=== PATIENT | female | born 1970 | race Caucasian/White ===

== ENCOUNTER 2019-08-08 17:11 | Inpatient (IN) | payer BC ==
--- NOTE | 2019-08-08 17:41 | PDOC ---
Attending Attestation - Resident Resident Name: Diana Reddy - ED Attending Attestation I have performed the following: I have examined & evaluated the patient, The case was reviewed & discussed with the resident, I agree w/resident's findings & plan, Exceptions are as noted - HPI HPI: 48 yo F history HTN, DM presents with severe HTN by PCP. She states she thought she did not need medication, as she had no symptoms. She noted recent tingling to the R foot. She has not seen a primary care since a year ago. She was sent to ED due to BP measurement of 250s/100s. Denies cp, SOB, headache, N/V, weakness. No change in urine output. - Physicial Exam PE: GENERAL: Awake, alert, and fully oriented, in no acute distress HEAD: No signs of trauma EYES: PERRLA, EOMI, sclera anicteric, conjunctiva clear ENT: Auricles normal inspection, hearing grossly normal, nares patent, oropharynx clear without exudates. Moist mucosa NECK: Normal ROM, supple, no lymphadenopathy, JVD, or masses LUNGS: Breath sounds equal, clear to auscultation bilaterally. No wheezes, and no crackles HEART: Regular rate and rhythm, normal S1 and S2, no murmurs, rubs or gallops ABDOMEN: Soft, nontender, normoactive bowel sounds. No guarding, no rebound. No masses EXTREMITIES: Normal range of motion, no edema. No clubbing or cyanosis. No cords, erythema, or tenderness NEUROLOGICAL: Cranial nerves II through XII grossly intact. Normal speech, normal gait. Motor intact. SKIN: Warm, dry, normal turgor, no rashes or lesions noted. - Medical Decision Making Suspect that the numbness is related to diabetic neuropathy in light of HbA1C of 11. Would be an unusual distribution for CVA. No other signs of end-organ damage related to HTN. Will obtain labs. Endorsed to night team.
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
[2019-08-08 18:21] LABS: BASO % 0.8 % (0-2.0); EOS % 3.1 % (0-4.5); HEMATOCRIT 41.1 % (32.4-45.2); LYMPH % 31.2 % (8-40); MCH 26.4 pg (25.7-33.7); MEAN CELL VOLUME 77.7 fl (80-96); MEAN PLT VOLUME 8.6 fl (7.5-11.1); MONO % 6.6 % (3.8-10.2); NEUT % 58.3 % (42.8-82.8); PLATELET COUNT 332 K/MM3 (134-434); RBC 5.29 M/mm3 (3.60-5.2); RDW 15.1 % (11.6-15.6)
[2019-08-08 18:55] LABS: ALBUMIN 3.9 g/dl (3.4-5.0); ALK PHOS 109 U/L (45-117); ANION GAP 8 MMOL/L (8-16); BILIRUBIN,TOTAL 0.3 mg/dL (0.2-1); BLOOD UREA NITROGEN 8.5 mg/dL (7-18); CALCIUM 9.2 mg/dL (8.5-10.1); CHLORIDE 100 mmol/L (98-107); CO2 26 mmol/L (21-32); CREATININE 0.8 mg/dL (0.55-1.3); GLUCOSE,RANDOM 383 mg/dL (74-106); POTASSIUM 3.6 mmol/L (3.5-5.1); SGOT/AST 11 U/L (15-37); SGPT/ALT 23 U/L (13-61); SODIUM 133 mmol/L (136-145); TOT PROT 7.3 g/dl (6.4-8.2)
[2019-08-08] MEDS ORDERED: LISINOPRIL 10 MG TABLET (FP) PO ONE (18:56)
[2019-08-08] MEDS ORDERED: HYDROCHLOROTHIAZIDE 12.5 MG CAPSULE (FP) PO ONE (18:57)
[2019-08-08] MEDS ORDERED: HYDROCHLOROTHIAZIDE 25 MG TABLET (FP) ONE (19:05)
[2019-08-08] MEDS ORDERED: LISINOPRIL 5 MG TABLET (FP) ONE (19:06)
--- NOTE | 2019-08-08 20:07 | PDOC ---
*Physical Exam - Vital Signs Last Vital Signs Temp Pulse Resp BP Pulse Ox 98.4 F 93 H 16 234/130 H 100 08/08/19 19:55 08/08/19 17:16 08/08/19 19:55 08/08/19 19:55 08/08/19 19:55 ED Treatment Course - LABORATORY CBC & Chemistry Diagram: 08/09/19 06:00 08/09/19 06:20 - ADDITIONAL ORDERS Additional order review: Laboratory Results 08/08/19 08/08/19 17:55 17:55 Sodium 133 L Potassium 3.6 Chloride 100 Carbon Dioxide 26 Anion Gap 8 BUN 8.5 Creatinine 0.8 Est GFR (CKD-EPI)AfAm 102.47 Est GFR (CKD-EPI)NonAf 88.41 Random Glucose 383 H Hemoglobin A1c % 11.0 H Calcium 9.2 Total Bilirubin 0.3 AST 11 L ALT 23 Alkaline Phosphatase 109 Total Protein 7.3 Albumin 3.9 08/08/19 17:55 RBC 5.29 H MCV 77.7 L MCHC 34.0 RDW 15.1 MPV 8.6 D Neutrophils % 58.3 D Lymphocytes % 31.2 D Monocytes % 6.6 D Eosinophils % 3.1 Basophils % 0.8 - RADIOLOGY Radiology Studies Ordered: Category Date Time Status HEAD CT (STROKE) [CT] Stat CT Scan 08/08/19 19:47 Ordered - Medications Given in the ED: ED Medications Discontinued Medications Generic Name Dose Route Start Last Admin Trade Name Freq PRN Reason Stop Dose Admin Hydrochlorothiazide 12.5 mg 08/08/19 18:57 08/08/19 19:17 Hctz - PO 08/08/19 18:58 12.5 mg ONCE ONE Administration Lisinopril 10 mg 08/08/19 18:56 08/08/19 19:16 Prinivil PO 08/08/19 18:57 10 mg ONCE ONE Administration Medical Decision Making - Medical Decision Making 08/08/19 20:[address] Reddy: - sent in by PCP for HTN - change in sensation of the dorsal aspect of the right foot - CT head - Cardiac profile 08/08/19 20:55 trop neg 08/08/19 21:01 pressures repeated and equivalent on both arms pt states she has change of sensation of the dorsal aspect of the right foot since thursday but has been steadily improving. f/u CT admit 08/08/19 21:05 d/w Dr. Dominique - no acute changes on CT Head, report to follow 08/08/19 21:24 CT Head report reviewed admit 08/08/19 22:30 endorses to OXYGEN SYSTEM TESTER Admitted Discharge - Discharge Information Problems reviewed: Yes Clinical Impression/Diagnosis: Hypertension Qualifiers: Hypertension type: unspecified Qualified Code(s): I10 - Essential (primary) hypertension Paresthesia of foot Qualifiers: Laterality: unspecified laterality Qualified Code(s): R20.2 - Paresthesia of skin Condition: Stable - Follow up/Referral - Patient Discharge Instructions - Post Discharge Activity
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
[2019-08-09] MEDS ORDERED: ACETAMINOPHEN 325 MG TABLET (FP) PO PRN (04:07)
[2019-08-09] MEDS ORDERED: LORazepam 0.5 MG TABLET PO PRN (04:08)
[2019-08-09 07:28] LABS: BASO % 0.9 % (0-2.0); EOS % 3.7 % (0-4.5); HEMATOCRIT 38.8 % (32.4-45.2); HEMOGLOBIN 13.1 GM/dL (10.7-15.3); LYMPH % 24.9 % (8-40); MCH 26.1 pg (25.7-33.7); MCHC 33.9 g/dl (32.0-36.0); MEAN CELL VOLUME 76.9 fl (80-96); MEAN PLT VOLUME 8.7 fl (7.5-11.1); MONO % 6.4 % (3.8-10.2); NEUT % 64.1 % (42.8-82.8); PLATELET COUNT 314 K/MM3 (134-434); RBC 5.04 M/mm3 (3.60-5.2); RDW 14.9 % (11.6-15.6); WHITE BLOOD COUNT 6.8 K/mm3 (4.0-10.0)
[2019-08-09] MEDS: INSULIN SLIDING SCALE (NOVOLOG) 1 VIAL SQ SCH ×4 (07:35→22:23)
[2019-08-09 07:51] LABS: ANION GAP 7 MMOL/L (8-16); BLOOD UREA NITROGEN 10.8 mg/dL (7-18); CALCIUM 9.1 mg/dL (8.5-10.1); CHLORIDE 100 mmol/L (98-107); CO2 28 mmol/L (21-32); CREATININE 0.7 mg/dL (0.55-1.3); GLUCOSE,RANDOM 295 mg/dL (74-106); POTASSIUM 3.4 mmol/L (3.5-5.1); SODIUM 135 mmol/L (136-145)
[2019-08-09 08:54] LABS: CHOLESTEROL 212 mg/dL (50-200); HDL CHOLESTEROL 66 mg/dL (40-60); LDL CHOLESTEROL (ONLY SJRH) 116 mg/dL (5-100); TRIGLYCERIDES 234 mg/dL (0-150)
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
--- NOTE | 2019-08-09 09:18 | EKG ---
Test Reason : Blood Pressure : / mmHG Vent. Rate : 076 BPM Atrial Rate : 076 BPM P-R Int : 138 ms QRS Dur : 084 ms QT Int : 372 ms P-R-T Axes : 023 023 -09 degrees QTc Int : 418 ms NORMAL SINUS RHYTHM ANTEROSEPTAL INFARCT , AGE UNDETERMINED ABNORMAL ECG Confirmed by Marcus Avelar MD ([id number]) on 08/09/2019 9:17:54 AM Referred By: Confirmed By:Marcus Avelar MD
[2019-08-09] MEDS ORDERED: HYDROCHLOROTHIAZIDE 25 MG TABLET (FP) ONE (09:33)
[2019-08-09] MEDS ORDERED: LISINOPRIL 5 MG TABLET (FP) ONE (09:33)
[2019-08-09] MEDS ORDERED: HEPARIN NA (PORCINE) 5,000 UNITS/ML 1ML VIAL ONE (09:33)
[2019-08-09] MEDS: HEPARIN NA (PORCINE) 5,000 UNITS/ML 1ML VIAL SQ SCH ×2 (09:35→22:23)
[2019-08-09] MEDS: HYDROCHLOROTHIAZIDE 12.5 MG CAPSULE (FP) PO SCH (09:35)
[2019-08-09] MEDS ORDERED: LISINOPRIL 10 MG TABLET (FP) PO SCH (10:00)
--- NOTE | 2019-08-09 10:37 | PN ---
Progress Note (short form) - Note Progress Note: admitted for numbness on dorsum of rt foot, HTN urgency Admits to non compliance with meds she was meeting with Dr sutherland for the first time Vital Signs - 24 hr 08/08/19 08/08/19 08/08/19 19:55 21:00 22:19 Temperature 98.4 F 98.3 F Pulse Rate Pulse Rate [ Left Radial] Pulse Rate [ 79 74 Left] Respiratory 16 18 Rate Blood Pressure 234/130 H 180/101 H 167/90 [Left Arm] O2 Sat by Pulse 100 98 99 Oximetry (%) 08/09/19 08/09/19 08/09/19 02:43 07:01 09:00 Temperature 98.3 F Pulse Rate 76 Pulse Rate [ 80 76 Left Radial] Pulse Rate [ 76 Left] Respiratory 18 20 Rate Blood Pressure 160/96 173/108 H [Left Arm] O2 Sat by Pulse 98 96 99 Oximetry (%) 08/09/19 08/09/19 10:45 15:00 Temperature Pulse Rate Pulse Rate [ 88 Left Radial] Pulse Rate [ Left] Respiratory 20 Rate Blood Pressure 168/102 H [Left Arm] O2 Sat by Pulse 99 96 Oximetry (%) Current Medications Generic Name Dose Route Start Last Admin Trade Name Freq PRN Reason Stop Dose Admin Acetaminophen 650 mg 08/09/19 04:07 Tylenol - PO Q6H PRN PAIN LEVEL 6-10 Atorvastatin Calcium 40 mg 08/09/19 22:00 Lipitor - PO HS KRZYSZTOF Heparin Sodium (Porcine) 5,000 unit 08/09/19 10:00 08/09/19 09:35 Heparin - SQ 5,000 unit BID KRZYSZTOF Administration Hydrochlorothiazide 12.5 mg 08/09/19 10:00 08/09/19 09:35 Hctz - PO 12.5 mg DAILY KRZYSZTOF Administration Insulin Aspart 1 vial 08/09/19 07:00 08/09/19 18:19 Novolog Vial Sliding Scale - SQ 8 units ACHS KRZYSZTOF Administration Protocol Insulin Detemir 14 units 08/09/19 22:00 Levemir Vial SQ 0700,2200 KRZYSZTOF Lisinopril 20 mg 08/09/19 10:37 Prinivil PO DAILY KRZYSZTOF Lorazepam 0.5 mg 08/09/19 04:08 Ativan - PO DAILY PRN ANXIETY Laboratory Results - last 24 hr 02/08/08/19 08/09/19 17:55 17:55 00:50 WBC RBC Hgb Hct MCV MCH MCHC RDW Plt Count MPV Absolute Neuts (auto) Neutrophils % Lymphocytes % Monocytes % Eosinophils % Basophils % Nucleated RBC % Sodium 133 L Potassium 3.6 Chloride 100 Carbon Dioxide 26 Anion Gap 8 BUN 8.5 Creatinine 0.8 Est GFR (CKD-EPI)AfAm 102.47 Est GFR (CKD-EPI)NonAf 88.41 POC Glucometer Random Glucose 383 H Hemoglobin A1c % 11.0 H Calcium 9.2 Total Bilirubin 0.3 AST 11 L ALT 23 Alkaline Phosphatase 109 Creatine Kinase 52 Troponin I < 0.02 < 0.02 Total Protein 7.3 Albumin 3.9 Triglycerides Cholesterol Total LDL Cholesterol HDL Cholesterol TSH 08/09/19 08/09/19 08/09/19 06:00 06:20 07:22 WBC 6.8 RBC 5.04 Hgb 13.1 Hct 38.8 MCV 76.9 L MCH 26.1 MCHC 33.9 RDW 14.9 Plt Count 314 MPV 8.7 Absolute Neuts (auto) 4.4 Neutrophils % 64.1 Lymphocytes % 24.9 D Monocytes % 6.4 Eosinophils % 3.7 Basophils % 0.9 Nucleated RBC % 0 Sodium 135 L Potassium 3.4 L Chloride 100 Carbon Dioxide 28 Anion Gap 7 L BUN 10.8 Creatinine 0.7 Est GFR (CKD-EPI)AfAm 120.43 Est GFR (CKD-EPI)NonAf 103.90 POC Glucometer 277 Random Glucose 295 H Hemoglobin A1c % Calcium 9.1 Total Bilirubin AST ALT Alkaline Phosphatase Creatine Kinase Troponin I < 0.02 Total Protein Albumin Triglycerides 234 H Cholesterol 212 H Total LDL Cholesterol 116 H HDL Cholesterol 66 H TSH 2.72 08/09/19 08/09/19 11:16 16:36 WBC RBC Hgb Hct MCV MCH MCHC RDW Plt Count MPV Absolute Neuts (auto) Neutrophils % Lymphocytes % Monocytes % Eosinophils % Basophils % Nucleated RBC % Sodium Potassium Chloride Carbon Dioxide Anion Gap BUN Creatinine Est GFR (CKD-EPI)AfAm Est GFR (CKD-EPI)NonAf POC Glucometer 206 343 Random Glucose Hemoglobin A1c % Calcium Total Bilirubin AST ALT Alkaline Phosphatase Creatine Kinase Troponin I Total Protein Albumin Triglycerides Cholesterol Total LDL Cholesterol HDL Cholesterol TSH S1 S2 RRR Lungs decreased Abd- soft, NT No edema decreased sensation to dorsum of right foot A/P HTN urgency -- increase lisinopril -- CT head noted -- replace potassium DM -- A1C 11 -- start levemir -- Endocrinology eval parasthesia -- for MRI BRAIN --Neurology eval noted Hyperlipidemia -- add lipitor as cholesterol not controlled Problem List - Problems (1) Anxiety Code(s): F41.9 - ANXIETY DISORDER, UNSPECIFIED (2) Asymptomatic hypertensive urgency Code(s): I16.0 - HYPERTENSIVE URGENCY (3) HTN (hypertension) Code(s): I10 - ESSENTIAL (PRIMARY) HYPERTENSION Qualifiers: (4) Paresthesia of right foot Code(s): R20.2 - PARESTHESIA OF SKIN (5) Uncontrolled diabetes mellitus Code(s): E11.65 - TYPE 2 DIABETES MELLITUS WITH HYPERGLYCEMIA
[2019-08-09] MEDS ORDERED: POTASSIUM CHLORIDE TABS 20 MEQ TABLET.ER (FP) PO ONE ×2 (10:40→11:00)
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
--- NOTE | 2019-08-09 17:10 | ECHO ---
Version: 1 Name: CADEN TYSON Exam: Adult Echocardiogram Study Date: 08/09/2019, 1:59 PM Age: 48 Years MMode/2D Measurements & Calculations IVSd: 1.33 cm LVIDs: 2.50 cm LVIDd: 3.6 cm LVPWd: 1.65 cm ACS: 1.75 cm Ao root diam: 2.47 cm LVOT diam: 1.76 cm LA dimension: 3.8 cm Doppler Measurements & Calculations MV E max terrence: 68.6 cm/sec Med E/e': 13.1 MV A max terrence: 86.9 cm/sec Med Peak E' Terrence: 5.2 cm/sec MV E/A: 0.79 Lat E/e': 13.1 Lat Peak E' Terrence: 5.2 cm/sec Ao max P.9 mmHg JACKY(I,D): 1.86 cm Ao mean P.3 mmHg LV V1 mean: 74.5 cm/sec Ao V2 max: 131.2 cm/sec LV V1 mean P.42 mmHg TR max terrence: 145.9 cm/sec TR max P.8 mmHg Left Ventricle The left ventricle is normal in size. There is moderate concentric left ventricular hypertrophy. Lef t ventricular systolic function is normal. Ejection Fraction = 65%. The transmitral spectral Doppler f low pattern is suggestive of impaired LV relaxation. Right Ventricle The right ventricle is normal in size and function. Atria Normal left and right atrial size and function. Mitral Valve The mitral valve is normal in structure and function. There is no mitral regurgitation noted. Tricuspid Valve The tricuspid valve is normal in structure and function. No tricuspid regurgitation. Aortic Valve The aortic valve is normal in structure and function. No aortic regurgitation is present. Pulmonic Valve The pulmonic valve is not well seen, but is grossly normal. Great Vessels The aortic root is normal size. Normal aortic arch, descending and ascending aorta. Pericardium/Pleura There is no pericardial effusion. Summary Statements The left ventricle is normal in size. There is moderate concentric left ventricular hypertrophy. Left ventricular systolic function is normal. Ejection Fraction = 65%. The transmitral spectral Doppler flow pattern is suggestive of impaired LV relaxation. The right ventricle is normal in size and function. Normal left and right atrial size and function. The mitral valve is normal in structure and function. There is no mitral regurgitation noted. The tricuspid valve is normal in structure and function. No tricuspid regurgitation. The aortic valve is normal in structure and function. No aortic regurgitation is present. The pulmonic valve is not well seen, but is grossly normal. The aortic root is normal size. Normal aortic arch, descending and ascending aorta There is no pericardial effusion. Oscar Parish 08/09/2019, 5:09 PM Ordering Physician: HIGINIO MOSER Performed By: Ibis Vázquez
[2019-08-09] MEDS ORDERED: INSULIN (LEVEMIR) 100 UNITS/ML UNITS SQ SCH (22:00)
[2019-08-09] MEDS: ATORVASTATIN CA 40 MG TABLET (FP) PO SCH (22:23)
[2019-08-09] MEDS ORDERED: PNEUMOC 13-VAL CONJ-DIP CRM/PF 0.5 ML DISP.SYRIN IM ONE (22:35)
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
[2019-08-09] MEDS ORDERED: PNEUMOCOCCAL 23 VACCINE 0.5 ML VIAL IM ONE (23:15)
[2019-08-10 01:15] VITALS: BMI 31.4
[2019-08-10] MEDS: INSULIN SLIDING SCALE (NOVOLOG) 1 VIAL SQ SCH ×4 (06:50→21:17)
[2019-08-10] MEDS: INSULIN (LEVEMIR) 100 UNITS/ML UNITS SQ SCH ×2 (06:50→21:17)
[2019-08-10] MEDS: metFORMIN HCL 500 MG TABLET (FP) PO SCH ×2 (06:50→17:23)
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
[2019-08-10] MEDS: HEPARIN NA (PORCINE) 5,000 UNITS/ML 1ML VIAL SQ SCH ×2 (09:17→21:17)
[2019-08-10] MEDS: LISINOPRIL 10 MG TABLET (FP) PO SCH (09:17)
[2019-08-10] MEDS: HYDROCHLOROTHIAZIDE 12.5 MG CAPSULE (FP) PO SCH (09:17)
--- NOTE | 2019-08-10 10:36 | PN ---
Progress Note (short form) - Note Progress Note: s: no chest pain, palps, dizziness, dyspnea Current Medications Acetaminophen (Tylenol -) 650 mg PO Q6H PRN PRN Reason: PAIN LEVEL 6-10 Atorvastatin Calcium (Lipitor -) 40 mg PO HS [facility] Last Admin: 08/09/19 22:23 Dose: 40 mg Heparin Sodium (Porcine) (Heparin -) 5,000 unit SQ BID [facility] Last Admin: 08/10/19 09:17 Dose: 5,000 unit Hydrochlorothiazide (Hctz -) 12.5 mg PO DAILY [facility] Last Admin: 08/10/19 09:17 Dose: 12.5 mg Insulin Aspart (Novolog Vial Sliding Scale -) 1 vial SQ ACHS [facility]; Protocol Last Admin: 08/10/19 06:50 Dose: 4 units Insulin Detemir (Levemir Vial) 20 units SQ 0700,2200 [facility] Last Admin: 08/10/19 06:50 Dose: 20 units Lisinopril (Prinivil) 20 mg PO DAILY [facility] Last Admin: 08/10/19 09:17 Dose: 20 mg Lorazepam (Ativan -) 0.5 mg PO DAILY PRN PRN Reason: ANXIETY Metformin HCl (Glucophage -) 1,000 mg PO BID@0700,1630 [facility] Last Admin: 08/10/19 06:50 Dose: 1,000 mg Sitagliptin Phosphate (Januvia -) 100 mg PO DAILY@0700 [facility] Last Admin: 08/10/19 06:50 Dose: 100 mg Vital Signs Period Temp Pulse Resp BP Sys/Acuna Pulse Ox Last 24 Hr 97.9 F-98.5 F 74-88 18-20 141-168/88-107 96-99 Constitutional: Yes: No Distress, Calm Eyes: Yes: Conjunctiva Clear, EOM Intact HENT: Yes: Atraumatic, Normocephalic Neck: Yes: Supple, Trachea Midline Respiratory: Yes: Regular, CTA Bilaterally Gastrointestinal: Yes: Normal Bowel Sounds, Soft Cardiovascular: Yes: Regular Rate and Rhythm Extremities: No: Cold Edema: No Integumentary: No: Jaundice Neurological: Yes: Alert, Oriented Psychiatric: No: Agitated Assessment/Plan EKG: sinus, old anteroseptal infarct CXR: no acute process echo 07/2019 nl LV function, mod cnoc LVH, impaired relaxation, nl RV function tele: sinus HTN urgency - in setting of noncompliance - trop neg x 2, EKG no ischemic changes, unlikely ACS - improved, cont lisinopril, HCTZ DM - not controlled, manage per primary HLD - cont statin parasthesias - workup per neuro
--- NOTE | 2019-08-10 12:07 | PN ---
Progress Note (short form) - Note Progress Note: Pt examined No complaints anxious about going fo r LP Vital Signs - 24 hr 08/09/19 08/09/19 08/09/19 15:00 22:36 22:39 Temperature 98.2 F Pulse Rate 80 Pulse Rate [ 88 Left Radial] Respiratory 20 18 Rate Blood Pressure 158/102 H Blood Pressure 168/102 H [Left Arm] O2 Sat by Pulse 96 99 Oximetry (%) 08/09/19 08/09/19 08/10/19 23:10 23:30 01:24 Temperature 98.5 F 98 F Pulse Rate 81 74 Pulse Rate [ Left Radial] Respiratory 18 18 Rate Blood Pressure 163/107 H 156/88 Blood Pressure [Left Arm] O2 Sat by Pulse 97 Oximetry (%) 08/10/19 08/10/19 08/10/19 05:48 08:01 08:10 Temperature 97.9 F 98.0 F Pulse Rate 76 76 Pulse Rate [ Left Radial] Respiratory 18 18 18 Rate Blood Pressure 141/103 H 147/98 Blood Pressure [Left Arm] O2 Sat by Pulse 97 Oximetry (%) Current Medications Generic Name Dose Route Start Last Admin Trade Name Freq PRN Reason Stop Dose Admin Acetaminophen 650 mg 08/09/19 04:07 Tylenol - PO Q6H PRN PAIN LEVEL 6-10 Atorvastatin Calcium 40 mg 08/09/19 22:00 08/09/19 22:23 Lipitor - PO 40 mg HS [facility] Administration Heparin Sodium (Porcine) 5,000 unit 08/09/19 10:00 08/10/19 09:17 Heparin - SQ 5,000 unit BID [facility] Administration Hydrochlorothiazide 12.5 mg 08/09/19 10:00 08/10/19 09:17 Hctz - PO 12.5 mg DAILY [facility] Administration Insulin Aspart 1 vial 08/09/19 07:00 08/10/19 11:29 Novolog Vial Sliding Scale - SQ Not Given ACHS [facility] Protocol Insulin Detemir 20 units 08/10/19 07:00 08/10/19 06:50 Levemir Vial SQ 20 units 0700,2200 [facility] Administration Lisinopril 20 mg 08/09/19 10:37 08/10/19 09:17 Prinivil PO 20 mg DAILY [facility] Administration Lorazepam 0.5 mg 08/09/19 04:08 Ativan - PO DAILY PRN ANXIETY Metformin HCl 1,000 mg 02/19/20 07:00 08/10/19 06:50 Glucophage - PO 1,000 mg BID@0700,1630 [facility] Administration Sitagliptin Phosphate 100 mg 08/10/19 07:00 08/10/19 06:50 Januvia - PO 100 mg DAILY@0700 [facility] Administration Laboratory Results - last 24 hr 08/09/19 08/09/19 08/10/19 16:36 21:00 06:49 POC Glucometer 343 199 212 08/10/19 11:23 POC Glucometer 102 S1 S2 RRR Lungs decreased Abd- soft, NT No edema decreased sensation to dorsum of right foot A/P HTN urgency -- increase lisinopril -- added HCTZ for better control -- CT head noted DM -- A1C 11 -- start levemir -- Endocrinology eval parasthesia -- MRI BRAIN-->demyelinating disease -- Lyme titers ordered -- for LP today -- may give xanax prior to procedure --Neurology eval noted Hyperlipidemia -- add lipitor as cholesterol not controlled Problem List - Problems (1) Anxiety Code(s): F41.9 - ANXIETY DISORDER, UNSPECIFIED (2) Asymptomatic hypertensive urgency Code(s): I16.0 - HYPERTENSIVE URGENCY (3) HTN (hypertension) Code(s): I10 - ESSENTIAL (PRIMARY) HYPERTENSION Qualifiers: (4) Paresthesia of right foot Code(s): R20.2 - PARESTHESIA OF SKIN (5) Uncontrolled diabetes mellitus Code(s): E11.65 - TYPE 2 DIABETES MELLITUS WITH HYPERGLYCEMIA
[2019-08-10] MEDS ORDERED: ALPRAZolam 1 MG TABLET PO PRN (12:08)
[2019-08-10 16:20] LABS: CSF COLOR COLORLESS
[2019-08-10 16:21] LABS: CSF APPEARANCE CLEAR; CSF WBC 2
[2019-08-10 20:47] LABS: BF GLUCOSE (CSF ONLY) 78 mg/dL (40-70)
[2019-08-10] MEDS: ATORVASTATIN CA 40 MG TABLET (FP) PO SCH (21:17)
--- NOTE | 2019-08-10 23:05 | PN ---
Progress Note, Physician Chief Complaint: no complaint - Current Medication List Current Medications: Active Medications Acetaminophen (Tylenol -) 650 mg PO Q6H PRN PRN Reason: PAIN LEVEL 6-10 Last Admin: 08/10/19 21:28 Dose: 650 mg Alprazolam (Xanax) 0.5 mg PO Q8H PRN PRN Reason: ANXIETY Last Admin: 08/10/19 21:28 Dose: 0.5 mg Atorvastatin Calcium (Lipitor -) 40 mg PO HS [facility] Last Admin: 08/10/19 21:17 Dose: 40 mg Heparin Sodium (Porcine) (Heparin -) 5,000 unit SQ BID [facility] Last Admin: 08/10/19 21:17 Dose: 5,000 unit Hydrochlorothiazide (Hctz -) 12.5 mg PO DAILY [facility] Last Admin: 08/10/19 09:17 Dose: 12.5 mg Insulin Aspart (Novolog Vial Sliding Scale -) [address] [facility]; Protocol Last Admin: 08/10/19 21:17 Dose: Not Given Insulin Detemir (Levemir Vial) 20 units SQ 0700,2200 [facility] Last Admin: 08/10/19 21:17 Dose: Not Given Lisinopril (Prinivil) 20 mg PO DAILY [facility] Last Admin: 08/10/19 09:17 Dose: 20 mg Metformin HCl (Glucophage -) 1,000 mg PO BID@0700,1630 [facility] Last Admin: 08/10/19 17:23 Dose: 1,000 mg Sitagliptin Phosphate (Januvia -) 100 mg PO DAILY@0700 [facility] Last Admin: 08/10/19 06:50 Dose: 100 mg - Objective Vital Signs: Vital Signs Temperature 98.4 F 08/10/19 22:00 Pulse Rate 88 08/10/19 22:00 Respiratory Rate 20 08/10/19 22:00 Blood Pressure 146/91 08/10/19 22:00 O2 Sat by Pulse Oximetry (%) 99 08/10/19 21:00 Constitutional: Yes: Calm Eyes: Yes: EOM Intact HENT: Yes: Normocephalic Neck: Yes: Trachea Midline Cardiovascular: Yes: Regular Rate and Rhythm Respiratory: Yes: CTA Bilaterally Gastrointestinal: Yes: Normal Bowel Sounds ...Rectal Exam: Yes: Deferred Genitourinary: Yes: WNL Extremities: Yes: WNL Edema: No Neurological: Yes: Alert, Oriented Labs: CBC, BMP 08/09/19 06:00 08/09/19 06:20 Problem List - Problems (1) Anxiety Code(s): F41.9 - ANXIETY DISORDER, UNSPECIFIED (2) HTN (hypertension) Code(s): I10 - ESSENTIAL (PRIMARY) HYPERTENSION Qualifiers: (3) Paresthesia of right foot Code(s): R20.2 - PARESTHESIA OF SKIN (4) Uncontrolled diabetes mellitus Code(s): E11.65 - TYPE 2 DIABETES MELLITUS WITH HYPERGLYCEMIA (5) Anemia Code(s): D64.9 - ANEMIA, UNSPECIFIED Qualifiers: Anemia type: iron deficiency Iron deficiency anemia type: inadequate dietary iron intake Qualified Code(s): D50.8 - Other iron deficiency anemias Assessment/Plan Current Active Problems Abnormal head CT (Acute) Anxiety (Acute) Asymptomatic hypertensive urgency (Acute) HTN (hypertension) (Acute) Paresthesia of right foot (Acute) Uncontrolled diabetes mellitus (Acute) Laboratory Results - last 24 hr 08/10/19 08/10/19 08/10/19 06:49 11:23 14:45 POC Glucometer 212 102 CSF Appearance Clear CSF Color Colorless CSF WBC 2 CSF RBC 1 CSF Neutrophils No Result Required. CSF Lymphocytes No Result Required. CSF Eosinophils No Result Required. CSF Basophils No Result Required. CSF Macrophages No Result Required. CSF Plasma Cells No Result Required. CSF Diff Comment No Result Required. CSF Comment No Result Required. CSF Glucose 78 H CSF Total Protein 49 H CSF Lyme Disease DNA 08/10/19 08/10/19 08/10/19 14:45 17:01 21:15 POC Glucometer 247 121 CSF Appearance CSF Color CSF WBC CSF RBC CSF Neutrophils CSF Lymphocytes CSF Eosinophils CSF Basophils CSF Macrophages CSF Plasma Cells CSF Diff Comment CSF Comment CSF Glucose CSF Total Protein CSF Lyme Disease DNA Cancelled Abnormal Lab Results 08/10/19 14:45 CSF Glucose 78 H CSF Total Protein 49 H plan: awaiting lp results bgm qid novlog scale janumet with insulin combonation therapy
[2019-08-11] MEDS: metFORMIN HCL 500 MG TABLET (FP) PO SCH (06:26)
[2019-08-11] MEDS: INSULIN (LEVEMIR) 100 UNITS/ML UNITS SQ SCH (06:26)
[2019-08-11] MEDS: INSULIN SLIDING SCALE (NOVOLOG) 1 VIAL SQ SCH (06:27)
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
[2019-08-11] MEDS: HYDROCHLOROTHIAZIDE 12.5 MG CAPSULE (FP) PO SCH (10:17)
[2019-08-11] MEDS: LISINOPRIL 10 MG TABLET (FP) PO SCH (10:17)
[2019-08-11] MEDS: HEPARIN NA (PORCINE) 5,000 UNITS/ML 1ML VIAL SQ SCH (10:17)
--- NOTE | 2019-08-11 11:15 | PN ---
Progress Note (short form) - Note Progress Note: s: no chest pain, palps, dizziness, dyspnea Current Medications Generic Name Dose Route Start Last Admin Trade Name Freq PRN Reason Stop Dose Admin Acetaminophen 650 mg 08/09/19 04:07 08/10/19 21:28 Tylenol - PO 650 mg Q6H PRN Administration PAIN LEVEL 6-10 Alprazolam 0.5 mg 08/10/19 12:08 08/10/19 21:28 Xanax PO 0.5 mg Q8H PRN Administration ANXIETY Atorvastatin Calcium 40 mg 08/09/19 22:00 08/10/19 21:17 Lipitor - PO 40 mg HS KRZYSZTOF Administration Heparin Sodium (Porcine) 5,000 unit 08/09/19 10:00 08/11/19 10:17 Heparin - SQ 5,000 unit BID KRZYSZTOF Administration Hydrochlorothiazide 12.5 mg 08/09/19 10:00 08/11/19 10:17 Hctz - PO 12.5 mg DAILY KRZYSZTOF Administration Insulin Aspart 1 vial 08/09/19 07:00 08/11/19 06:27 Novolog Vial Sliding Scale - SQ 2 units ACHS KRZYSZTOF Administration Protocol Insulin Detemir 20 units 08/10/19 07:00 08/11/19 06:26 Levemir Vial SQ 20 units 0700,2200 KRZYSZTOF Administration Lisinopril 20 mg 08/09/19 10:37 08/11/19 10:17 Prinivil PO 20 mg DAILY KRZYSZTOF Administration Metformin HCl 1,000 mg 08/10/19 07:00 08/11/19 06:26 Glucophage - PO 1,000 mg BID@0700,1630 KRZYSZTOF Administration Sitagliptin Phosphate 100 mg 08/10/19 07:00 08/11/19 06:26 Januvia - PO 100 mg DAILY@0700 KRZYSZTOF Administration Vital Signs Period Temp Pulse Resp BP Sys/Acuna Pulse Ox Last 24 Hr 98 F-98.9 F 76-89 18-20 124-158/78-93 99 Constitutional: Yes: No Distress, Calm Eyes: Yes: Conjunctiva Clear Neck: Yes: Supple, Trachea Midline Respiratory: Yes: Regular, CTA Bilaterally Gastrointestinal: Yes: Normal Bowel Sounds, Soft Cardiovascular: Yes: Regular Rate and Rhythm Extremities: No: Cold Edema: No Integumentary: No: Jaundice Neurological: Yes: Alert, Oriented Psychiatric: No: Agitated CBC, BMP 02/18/20 06:00 08/09/19 06:20 Assessment/Plan EKG: sinus, old anteroseptal infarct CXR: no acute process echo 07/2019 nl LV function, mod cnoc LVH, impaired relaxation, nl RV function tele: sinus HTN urgency - in setting of noncompliance - trop neg x 2, EKG no ischemic changes, no signs of ACS - improved, cont lisinopril, HCTZ DM - not controlled, manage per primary HLD - cont statin parasthesias - workup per neuro cardiac yang stable
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
[2019-08-11 15:07] VITALS: BP 142/98; PULSE 87; TEMP 98.3
[2019-08-17 10:07] LABS: LYME PCR CSF Negative (Negative)
== END 2019-08-11 18:25 | disposition home or self-care (01) | DRG 305 ==
LOC: JER 17:11 → JERBED 21:51 → J4W 08-09 23:06
PROVIDERS: ADMIT Internal Medicine; ATTEND Internal Medicine
PROC: 009U3ZX Drainage of Spinal Canal, Percutaneous Approach, Diagnostic (ICD-10-PCS; principal; 2019-08-10)
DX: I16.0 Hypertensive urgency (principal); E11.65 Type 2 diabetes mellitus with hyperglycemia; E11.40 Type 2 diabetes mellitus with diabetic neuropathy, unspecified; Z79.84 Long term (current) use of oral hypoglycemic drugs; Z91.14 Patient's other noncompliance with medication regimen; F41.9 Anxiety disorder, unspecified; E66.9 Obesity, unspecified; R20.2 Paresthesia of skin; E78.5 Hyperlipidemia, unspecified; D64.9 Anemia, unspecified; Z68.31 Body mass index [BMI] 31.0-31.9, adult
CPT/HCPCS: 36415; 62272; 70450-TC; 70551-TC; 71045-TC-FY; 76000-TC-FY; 76098-TC-FY; 80048; 80053; 80061; 82550; 82784; 82945; 82962; 83036; 83721; 83873; 83916; 84157; 84443; 84484; 85025; 86618; 87476; 87899; 90732; 93005; 93010; 93306-TC; 99285-25; G0009; J1644

== ENCOUNTER 2021-09-03 10:50 | Observation (INO) | payer BC ==
[2021-09-03] MEDS ORDERED: ACETAMINOPHEN 500 MG TABLET (FP) PO ONE (11:49)
[2021-09-03] MEDS ORDERED: ACETAMINOPHEN 325 MG TABLET (FP) ONE (11:53)
[2021-09-03] MEDS ORDERED: SODIUM CHLORIDE 0.9% 500 ML INFUS.BAG IV ONE (12:01)
[2021-09-03 12:23] LABS: BASO % 0.6 % (0-2.0); EOS % 1.6 % (0-4.5); HEMATOCRIT 42.3 % (32.4-45.2); HEMOGLOBIN 14.2 GM/dL (10.7-15.3); LYMPH % 22.6 % (8-40); MCH 28.3 pg (25.7-33.7); MCHC 33.7 g/dl (32.0-36.0); MEAN CELL VOLUME 84.1 fl (80-96); MEAN PLT VOLUME 9.3 fl (7.5-11.1); MONO % 5.1 % (3.8-10.2); NEUT % 70.1 % (42.8-82.8); PLATELET COUNT 493 10^3/uL (134-434); RBC 5.03 M/mm3 (3.60-5.2); RDW 14.2 % (11.6-15.6); WHITE BLOOD COUNT 7.9 K/mm3 (4.0-10.0)
[2021-09-03 12:35] LABS: VENOUS BASE EXCESS 1.3 mmol/L (-2-2); VENOUS O2 SATURATION 62.8 % (70-80); VENOUS PH 7.426 (7.310-7.410)
[2021-09-03] MEDS ORDERED: ASPIRIN 325 MG TABLET PO ONE (12:38)
[2021-09-03] MEDS ORDERED: ASPIRIN 325 MG TABLET ONE (12:43)
[2021-09-03 12:53] LABS: CHLORIDE 97 mmol/L (98-107); SODIUM 135 mmol/L (136-145)
[2021-09-03 12:56] LABS: ANION GAP 12 MMOL/L (8-16); BLOOD UREA NITROGEN 14.3 mg/dL (7-18); CALCIUM 9.2 mg/dL (8.5-10.1); CO2 25 mmol/L (21-32); MAGNESIUM 1.7 mg/dL (1.8-2.4)
[2021-09-03 12:58] LABS: ALBUMIN 3.5 g/dl (3.4-5.0)
[2021-09-03 13:00] LABS: CREATININE 0.7 mg/dL (0.55-1.3); SGOT/AST 15 U/L (15-37); SGPT/ALT 19 U/L (13-61)
[2021-09-03 13:01] LABS: BILIRUBIN,TOTAL 0.8 mg/dL (0.2-1); TOT PROT 6.9 g/dl (6.4-8.2)
[2021-09-03 13:02] LABS: ALK PHOS 107 U/L (45-117)
[2021-09-03 13:11] LABS: GLUCOSE,RANDOM 409 mg/dL (74-106)
[2021-09-03 13:25] LABS: URINE APPEARANCE CLEAR; URINE BILIRUBIN NEGATIVE (NEGATIVE); URINE COLOR YELLOW; URINE GLUCOSE (UA) 3+ (NEGATIVE); URINE KETONE 1+ (NEGATIVE); URINE LEUK ESTERASE NEGATIVE (NEGATIVE); URINE NITRITE NEGATIVE (NEGATIVE); URINE PROTEIN NEGATIVE (NEGATIVE); URINE UROBILINOGEN 0.2 mg/dL (0.2-1.0)
[2021-09-03] MEDS ORDERED: SODIUM CHLORIDE 0.45% 1,000 ML IV SCH (15:15)
[2021-09-03] MEDS ORDERED: metFORMIN HCL 500 MG TABLET (FP) ONE (17:08)
[2021-09-03] MEDS ORDERED: sitaGLIPtin PHOSPHATE 50 MG TABLET ONE (17:09)
[2021-09-03] MEDS: INSULIN (NOVOLOG) ASPART 100 UNITS/ML 10ML VIAL SQ SCH (17:23)
[2021-09-03] MEDS: metFORMIN HCL 500 MG TABLET (FP) PO SCH (17:33)
[2021-09-03] MEDS: sitaGLIPtin PHOSPHATE 50 MG TABLET PO SCH (17:33)
[2021-09-03] MEDS ORDERED: PATIENT'S OWN MEDICATION (NON-FORMULARY) (Sitagliptin Phos/Metformin Hcl [Janumet 50-1,000 PO SCH (22:00)
[2021-09-03] MEDS ORDERED: ATORVASTATIN CA 40 MG TABLET (FP) ONE (22:19)
[2021-09-03] MEDS: ATORVASTATIN CA 40 MG TABLET (FP) PO SCH (22:30)
[2021-09-03] MEDS: INSULIN (LEVEMIR) 100 UNITS/ML UNITS SQ SCH (22:36)
[2021-09-04 03:48] VITALS: BMI 29.5
[2021-09-04] MEDS ORDERED: SODIUM CHLORIDE 0.45% 1,000 ML IV SCH (04:17)
[2021-09-04] MEDS: sitaGLIPtin PHOSPHATE 50 MG TABLET PO SCH ×2 (06:42→16:19)
[2021-09-04] MEDS: metFORMIN HCL 500 MG TABLET (FP) PO SCH ×2 (06:42→16:19)
[2021-09-04] MEDS: INSULIN (LEVEMIR) 100 UNITS/ML UNITS SQ SCH ×2 (06:43→22:08)
[2021-09-04] MEDS: INSULIN (NOVOLOG) ASPART 100 UNITS/ML 10ML VIAL SQ SCH ×3 (07:44→16:19)
[2021-09-04 07:51] LABS: BASO % 1.1 % (0-2.0); EOS % 3.1 % (0-4.5); HEMATOCRIT 42.4 % (32.4-45.2); HEMOGLOBIN 14.5 GM/dL (10.7-15.3); LYMPH % 32.6 % (8-40); MCH 28.7 pg (25.7-33.7); MCHC 34.2 g/dl (32.0-36.0); MEAN PLT VOLUME 9.1 fl (7.5-11.1); MONO % 6.9 % (3.8-10.2); NEUT % 56.3 % (42.8-82.8); PLATELET COUNT 445 10^3/uL (134-434); RBC 5.04 M/mm3 (3.60-5.2); RDW 14.3 % (11.6-15.6)
[2021-09-04 08:29] LABS: ALBUMIN 3.3 g/dl (3.4-5.0); BLOOD UREA NITROGEN 11.1 mg/dL (7-18); CALCIUM 8.5 mg/dL (8.5-10.1)
[2021-09-04 08:30] LABS: BILIRUBIN,TOTAL 0.4 mg/dL (0.2-1)
[2021-09-04 08:32] LABS: CREATININE 0.6 mg/dL (0.55-1.3); TOT PROT 6.4 g/dl (6.4-8.2)
[2021-09-04] MEDS: HYDROCHLOROTHIAZIDE 12.5 MG CAPSULE (FP) PO SCH (10:34)
[2021-09-04] MEDS: LISINOPRIL 20 MG TABLET PO SCH (10:34)
[2021-09-04] MEDS: ENOXAPARIN NA (PORCINE) 40 MG/0.4 ML DISP.SYRIN SQ SCH (10:34)
[2021-09-04] MEDS ORDERED: POTASSIUM CHLORIDE TABS 20 MEQ TABLET.ER (FP) PO ONE (11:00)
[2021-09-04] MEDS: ATORVASTATIN CA 40 MG TABLET (FP) PO SCH (22:09)
[2021-09-05] MEDS: INSULIN (NOVOLOG) ASPART 100 UNITS/ML 10ML VIAL SQ SCH ×3 (06:11→16:29)
[2021-09-05] MEDS: sitaGLIPtin PHOSPHATE 50 MG TABLET PO SCH ×2 (07:30→16:19)
[2021-09-05] MEDS: INSULIN (LEVEMIR) 100 UNITS/ML UNITS SQ SCH (07:30)
[2021-09-05] MEDS: metFORMIN HCL 500 MG TABLET (FP) PO SCH ×2 (07:30→16:19)
[2021-09-05] MEDS: LISINOPRIL 20 MG TABLET PO SCH (09:01)
[2021-09-05] MEDS: ENOXAPARIN NA (PORCINE) 40 MG/0.4 ML DISP.SYRIN SQ SCH (09:01)
[2021-09-05] MEDS: HYDROCHLOROTHIAZIDE 12.5 MG CAPSULE (FP) PO SCH (09:01)
[2021-09-05] MEDS ORDERED: REGADENOSON 0.4 MG/5 ML PRE-FILLED SYRINGE IVPUSH ONE ×2 (09:33→10:00)
[2021-09-05 15:14] VITALS: BP 136/80; PULSE 86; TEMP 98.4
== END 2021-09-05 18:49 | disposition home or self-care (01) ==
LOC: JER 10:50 → JERBED 13:01 → J4W 09-04 02:47
PROVIDERS: ADMIT Internal Medicine; ATTEND Internal Medicine
PROC: 3E033GC Introduction of Other Therapeutic Substance into Peripheral Vein, Percutaneous Approach (ICD-10-PCS; principal; 2021-09-03)
PROC: 3E013VG Introduction of Insulin into Subcutaneous Tissue, Percutaneous Approach (ICD-10-PCS; 2021-09-03)
DX: I20.0 Unstable angina (principal); I10 Essential (primary) hypertension; E11.65 Type 2 diabetes mellitus with hyperglycemia; F41.9 Anxiety disorder, unspecified; J45.909 Unspecified asthma, uncomplicated; E78.5 Hyperlipidemia, unspecified; E66.9 Obesity, unspecified; Z68.29 Body mass index [BMI] 29.0-29.9, adult; Z79.4 Long term (current) use of insulin
CPT/HCPCS: 36415; 70450-TC; 71046-TC-FY; 78452-TC; 80053; 80061; 81003; 82010; 82803; 82962; 83036; 83735; 84439; 84443; 84484; 85025; 87086; 93005; 93010; 93017; 93306-TC; 96372; 96374; 99285-25; A9502; C9803-CS; G0378; J2785; U0003; U0005

== ENCOUNTER 2022-07-29 12:03 | Observation (INO) | payer BC ==
[2022-07-29 12:23] VITALS: BMI 28.3
[2022-07-29] MEDS ORDERED: SODIUM CHLORIDE 0.9% 500 ML INFUS.BAG IV ONE (12:52)
[2022-07-29 13:15] LABS: VENOUS BASE EXCESS -2.1 mmol/L (-2-2); VENOUS O2 SATURATION 80.7 % (70-80); VENOUS PCO2 39.6 mmHg (38-52); VENOUS PH 7.378 (7.310-7.410)
[2022-07-29 13:20] LABS: EOS % 2.5 % (0-4.5); HEMATOCRIT 43.8 % (32.4-45.2); HEMOGLOBIN 14.6 GM/dL (10.7-15.3); LYMPH % 14.6 % (8-40); MCH 29.4 pg (25.7-33.7); MCHC 33.3 g/dl (32.0-36.0); MEAN CELL VOLUME 88.2 fl (80-96); MEAN PLT VOLUME 9.3 fl (7.5-11.1); MONO % 7.6 % (3.8-10.2); NEUT % 74.3 % (42.8-82.8); PLATELET COUNT 519 10^3/uL (134-434); RBC 4.96 M/mm3 (3.60-5.2); WHITE BLOOD COUNT 5.8 K/mm3 (4.0-10.0)
[2022-07-29 13:27] LABS: INR 0.96 (0.83-1.09); PROTHROMBIN TIME (PATIENT) 11.1 SEC (9.7-13.0)
[2022-07-29 13:28] LABS: ACTIVATED PTT 26.6 SECONDS (25.2-36.5)
[2022-07-29] MEDS ORDERED: ASPIRIN 325 MG TABLET PO ONE (13:30)
[2022-07-29 13:33] LABS: CHLORIDE 100 mmol/L (98-107); SODIUM 131 mmol/L (136-145)
[2022-07-29 13:35] LABS: CALCIUM 9.2 mg/dL (8.5-10.1)
[2022-07-29 13:36] LABS: ALBUMIN 3.6 g/dl (3.4-5.0); ANION GAP 7 MMOL/L (8-16); CO2 24 mmol/L (21-32)
[2022-07-29 13:39] LABS: CREATININE 0.8 mg/dL (0.55-1.3); SGOT/AST 28 U/L (15-37); SGPT/ALT 38 U/L (13-61)
[2022-07-29 13:41] LABS: BILIRUBIN,TOTAL 0.3 mg/dL (0.2-1)
[2022-07-29 13:42] LABS: ALK PHOS 137 U/L (45-117)
[2022-07-29 13:50] LABS: GLUCOSE,RANDOM 447 mg/dL (74-106)
[2022-07-29] MEDS ORDERED: INSULIN REGULAR HUMAN 100 UNITS/ML *VIAL IVPUSH ONE (15:30)
[2022-07-29] MEDS ORDERED: NITROGLYCERIN SUBLINGUAL 1/150 0.4 MG TAB SL PRN (15:42)
[2022-07-29] MEDS ORDERED: LACTATED RINGERS SOLUTION 1,000 ML/1,000 ML INFUS.BAG IV SCH (16:00)
[2022-07-29] MEDS ORDERED: CARVEDILOL 6.25 MG TABLET (FP) PO ONE (16:03)
[2022-07-29] MEDS ORDERED: INSULIN (NOVOLOG) ASPART 100 UNITS/ML 10ML VIAL SQ ONE (16:10)
[2022-07-29] MEDS ORDERED: CARVEDILOL 6.25 MG TABLET (FP) ONE (16:19)
[2022-07-29 16:23] LABS: EPI CELLS 13 /uL (0-25.1); HYALINE CASTS 1 /uL (0-3.1); PH,URINE 5.5 (5.0-8.0); URINE APPEARANCE CLEAR; URINE BILIRUBIN NEGATIVE (NEGATIVE); URINE COLOR YELLOW; URINE GLUCOSE (UA) 3+ (NEGATIVE); URINE KETONE TRACE (NEGATIVE); URINE LEUK ESTERASE NEGATIVE (NEGATIVE); URINE NITRITE NEGATIVE (NEGATIVE); URINE PROTEIN NEGATIVE (NEGATIVE); URINE RBC 2 /uL (0-23.9); URINE UROBILINOGEN 0.2 mg/dL (0.2-1.0); URINE WBC 3 /uL (0-25.8)
[2022-07-29] MEDS ORDERED: INSULIN (NOVOLOG) ASPART 100 UNITS/ML 10ML VIAL SQ SCH (16:30)
[2022-07-29] MEDS: INSULIN (NOVOLOG) ASPART 100 UNITS/ML 10ML VIAL SQ SCH (16:30)
[2022-07-29] MEDS: INSULIN SLIDING SCALE (NOVOLOG) 1 VIAL SQ SCH ×2 (18:15→21:56)
[2022-07-29] MEDS ORDERED: LISINOPRIL 10 MG TABLET ONE ×2 (19:57→19:59)
[2022-07-29] MEDS: LISINOPRIL 10 MG TABLET PO SCH (20:02)
[2022-07-29] MEDS: INSULIN (LEVEMIR) 100 UNITS/ML UNITS SQ SCH (21:55)
[2022-07-29] MEDS: ATORVASTATIN CA 40 MG TABLET (FP) PO SCH (21:55)
[2022-07-30] MEDS: INSULIN (NOVOLOG) ASPART 100 UNITS/ML 10ML VIAL SQ SCH ×3 (06:23→17:35)
[2022-07-30] MEDS: INSULIN SLIDING SCALE (NOVOLOG) 1 VIAL SQ SCH ×4 (06:24→21:28)
[2022-07-30 07:39] LABS: BASO % 0.6 % (0-2.0); EOS % 4.3 % (0-4.5); HEMOGLOBIN 13.2 GM/dL (10.7-15.3); LYMPH % 26.1 % (8-40); MCH 29.4 pg (25.7-33.7); MCHC 33.1 g/dl (32.0-36.0); MEAN CELL VOLUME 88.9 fl (80-96); MONO % 7.4 % (3.8-10.2); NEUT % 61.6 % (42.8-82.8); PLATELET COUNT 490 10^3/uL (134-434); RDW 13.9 % (11.6-15.6); WHITE BLOOD COUNT 6.5 K/mm3 (4.0-10.0)
[2022-07-30 08:00] LABS: CALCIUM 8.4 mg/dL (8.5-10.1)
[2022-07-30 08:01] LABS: BLOOD UREA NITROGEN 11.7 mg/dL (7-18)
[2022-07-30 08:04] LABS: CREATININE 0.5 mg/dL (0.55-1.3)
[2022-07-30] MEDS: ASPIRIN COATED 81 MG TABLET.EC PO SCH (09:42)
[2022-07-30] MEDS: LISINOPRIL 10 MG TABLET PO SCH (09:42)
[2022-07-30] MEDS: ENOXAPARIN NA (PORCINE) 40 MG/0.4 ML DISP.SYRIN SQ SCH (09:43)
[2022-07-30] MEDS: CARVEDILOL 6.25 MG TABLET (FP) PO SCH ×2 (09:43→21:27)
[2022-07-30] MEDS: HYDROCHLOROTHIAZIDE 12.5 MG CAPSULE (FP) PO SCH (12:33)
[2022-07-30] MEDS: ATORVASTATIN CA 40 MG TABLET (FP) PO SCH (21:27)
[2022-07-30] MEDS: INSULIN (LEVEMIR) 100 UNITS/ML UNITS SQ SCH (21:28)
[2022-07-31] MEDS: INSULIN (NOVOLOG) ASPART 100 UNITS/ML 10ML VIAL SQ SCH ×3 (06:26→18:26)
[2022-07-31] MEDS: INSULIN SLIDING SCALE (NOVOLOG) 1 VIAL SQ SCH ×4 (06:26→21:50)
[2022-07-31] MEDS: CARVEDILOL 6.25 MG TABLET (FP) PO SCH ×2 (09:17→21:47)
[2022-07-31] MEDS: HYDROCHLOROTHIAZIDE 12.5 MG CAPSULE (FP) PO SCH (09:17)
[2022-07-31] MEDS: ENOXAPARIN NA (PORCINE) 40 MG/0.4 ML DISP.SYRIN SQ SCH (09:17)
[2022-07-31] MEDS: LISINOPRIL 10 MG TABLET PO SCH (09:17)
[2022-07-31] MEDS: ASPIRIN COATED 81 MG TABLET.EC PO SCH (09:17)
[2022-07-31 18:35] VITALS: RESP 20
[2022-07-31] MEDS: INSULIN (LEVEMIR) 100 UNITS/ML UNITS SQ SCH (21:49)
[2022-07-31] MEDS: ATORVASTATIN CA 40 MG TABLET (FP) PO SCH (21:52)
[2022-07-31 23:54] VITALS: BP 155/90; PULSE 78; TEMP 98.7
== END 2022-08-01 00:30 | disposition short-term general hospital (02) ==
LOC: JER 12:03 → JERBED 15:24 → J4W 21:25
PROVIDERS: ADMIT Internal Medicine
PROC: 3E023GC Introduction of Other Therapeutic Substance into Muscle, Percutaneous Approach (ICD-10-PCS; principal; 2022-07-29)
PROC: 3E013VG Introduction of Insulin into Subcutaneous Tissue, Percutaneous Approach (ICD-10-PCS; 2022-07-29)
PROC: 3E0337Z Introduction of Electrolytic and Water Balance Substance into Peripheral Vein, Percutaneous Approach (ICD-10-PCS; 2022-07-29)
DX: I20.0 Unstable angina (principal); F41.9 Anxiety disorder, unspecified; I10 Essential (primary) hypertension; J45.909 Unspecified asthma, uncomplicated; E78.5 Hyperlipidemia, unspecified; E11.9 Type 2 diabetes mellitus without complications
CPT/HCPCS: 0241U-QW; 36415; 71046-TC-FY; 80048; 80053; 81003; 82550; 82803; 82962; 83036; 83735; 84484; 85025; 85610; 85730; 87077; 87086; 93005; 93010; 93306-TC; 99285-25; G0378

== ENCOUNTER 2022-11-27 10:35 | Observation (INO) | payer BC ==
[2022-11-27 12:21] LABS: EOS % 1.5 % (0-4.5); HEMATOCRIT 39.4 % (32.4-45.2); HEMOGLOBIN 12.4 GM/dL (10.7-15.3); MCH 25.7 pg (25.7-33.7); MCHC 31.5 g/dl (32.0-36.0); MEAN CELL VOLUME 81.3 fl (80-96); MEAN PLT VOLUME 9.8 fl (7.5-11.1); MONO % 4.6 % (3.8-10.2); NEUT % 82.9 % (42.8-82.8); PLATELET COUNT 531 10^3/uL (134-434); RBC 4.84 M/mm3 (3.60-5.2); RDW 14.9 % (11.6-15.6); WHITE BLOOD COUNT 14.3 K/mm3 (4.0-10.0)
[2022-11-27 12:28] LABS: INR 0.96 (0.83-1.09); PROTHROMBIN TIME (PATIENT) 11.1 SEC (9.7-13.0)
[2022-11-27 12:31] LABS: ACTIVATED PTT 25.5 SECONDS (25.2-36.5)
[2022-11-27 12:42] LABS: CHLORIDE 96 mmol/L (98-107); POTASSIUM 4.5 mmol/L (3.5-5.1); SODIUM 135 mmol/L (136-145)
[2022-11-27 12:44] LABS: CALCIUM 9.4 mg/dL (8.5-10.1)
[2022-11-27 12:45] LABS: ALBUMIN 3.5 g/dl (3.4-5.0); ANION GAP 13 MMOL/L (8-16); BLOOD UREA NITROGEN 13.1 mg/dL (7-18); CO2 26 mmol/L (21-32); MAGNESIUM 1.9 mg/dL (1.8-2.4)
[2022-11-27 12:48] LABS: CREATININE 0.9 mg/dL (0.55-1.3); SGOT/AST 13 U/L (15-37); SGPT/ALT 27 U/L (13-61)
[2022-11-27 12:50] LABS: BILIRUBIN,TOTAL 0.4 mg/dL (0.2-1)
[2022-11-27 12:51] LABS: ALK PHOS 124 U/L (45-117)
[2022-11-27 12:52] LABS: N-TERMINAL BNP 136.9 pg/ml (5-125)
[2022-11-27 13:03] LABS: GLUCOSE,RANDOM 496 mg/dL (74-106)
[2022-11-27] MEDS ORDERED: SODIUM CHLORIDE 1,000 ML IV STA (13:48)
[2022-11-27] MEDS ORDERED: INSULIN REGULAR HUMAN 100 UNITS/ML *VIAL SQ ONE (13:48)
[2022-11-27] MEDS ORDERED: methylPREDNISolone NA SUCC 125 MG/2 ML VIAL IVPUSH ONE (16:04)
[2022-11-27] MEDS ORDERED: ALBUTEROL SO4 2.5/IPRATROPIUM 0.5 INH SOL 3 ML VIAL.NEB. NEB ONE ×2 (16:08→16:24)
[2022-11-27] MEDS ORDERED: methylPREDNISolone NA SUCC 125 MG/2 ML VIAL ONE (16:08)
[2022-11-27] MEDS: ALBUTEROL SO4 2.5/IPRATROPIUM 0.5 INH SOL 3 ML VIAL.NEB. NEB SCH ×4 (16:13→16:38)
[2022-11-27] MEDS ORDERED: ASPIRIN 81 MG CHEWABLE TABLETS PO ONE (18:53)
[2022-11-27] MEDS ORDERED: ASPIRIN 81 MG CHEWABLE TABLETS ONE (19:21)
[2022-11-27] MEDS ORDERED: LIDOCAINE 5% TOPICAL PATCH TP ONE (20:20)
[2022-11-27] MEDS ORDERED: guaiFENesin/D-M SUGAR-FREE/ACLHOL-FREE (200 MG/10 MG) 5 ML PO PRN (20:20)
[2022-11-27] MEDS: metoPROLOL SUCCINATE 25 MG TAB.SR.24H (FP) PO SCH (21:30)
[2022-11-27] MEDS: ACETAMINOPHEN 500 MG TABLET (FP) PO PRN (21:41)
[2022-11-27] MEDS ORDERED: metoPROLOL SUCCINATE 25 MG TAB.SR.24H (FP) PO ONE (21:44)
[2022-11-27] MEDS ORDERED: ACETAMINOPHEN 500 MG TABLET (FP) ONE (21:57)
[2022-11-27] MEDS ORDERED: LIDOCAINE PATCH REMOVAL MC SCH (22:00)
[2022-11-27] MEDS ORDERED: ATORVASTATIN CA 40 MG TABLET (FP) PO SCH (22:00)
[2022-11-27] MEDS ORDERED: INSULIN (NOVOLOG) ASPART 100 UNITS/ML 10ML VIAL SQ ONE (23:12)
[2022-11-27] MEDS: INSULIN SLIDING SCALE (NOVOLOG) 1 VIAL SQ SCH (23:19)
[2022-11-27] MEDS ORDERED: INSULIN (LEVEMIR) 100 UNITS/ML UNITS SQ SCH (23:30)
[2022-11-28] MEDS ORDERED: INSULIN (NOVOLOG) ASPART 100 UNITS/ML 10ML VIAL SQ ONE (00:45)
[2022-11-28 06:10] VITALS: BMI 28.3
[2022-11-28] MEDS: INSULIN SLIDING SCALE (NOVOLOG) 1 VIAL SQ SCH ×3 (07:01→17:07)
[2022-11-28 07:58] LABS: HEMATOCRIT 39.5 % (32.4-45.2); HEMOGLOBIN 12.5 GM/dL (10.7-15.3); MCH 25.7 pg (25.7-33.7); MCHC 31.6 g/dl (32.0-36.0); MEAN CELL VOLUME 81.2 fl (80-96); MEAN PLT VOLUME 9.6 fl (7.5-11.1); PLATELET COUNT 570 10^3/uL (134-434); RBC 4.86 M/mm3 (3.60-5.2); RDW 14.9 % (11.6-15.6); WHITE BLOOD COUNT 17.6 K/mm3 (4.0-10.0)
[2022-11-28] MEDS ORDERED: ALBUTEROL SO4 2.5/IPRATROPIUM 0.5 INH SOL 3 ML VIAL.NEB. NEB SCH (08:00)
[2022-11-28 08:15] LABS: POTASSIUM 4.2 mmol/L (3.5-5.1)
[2022-11-28 08:17] LABS: ALBUMIN 3.6 g/dl (3.4-5.0); BLOOD UREA NITROGEN 18.9 mg/dL (7-18); CALCIUM 9.7 mg/dL (8.5-10.1)
[2022-11-28 08:19] LABS: CREATININE 0.6 mg/dL (0.55-1.3)
[2022-11-28 08:22] LABS: BILIRUBIN,TOTAL 0.4 mg/dL (0.2-1)
[2022-11-28] MEDS ORDERED: INSULIN (LEVEMIR) 100 UNITS/ML UNITS SQ SCH ×3 (08:30→22:00)
[2022-11-28] MEDS: ALBUTEROL SO4 2.5/IPRATROPIUM 0.5 INH SOL 3 ML VIAL.NEB. NEB SCH ×3 (08:34→16:40)
[2022-11-28] MEDS: ACETAMINOPHEN 500 MG TABLET (FP) PO PRN (09:40)
[2022-11-28] MEDS: metoPROLOL SUCCINATE 25 MG TAB.SR.24H (FP) PO SCH (09:40)
[2022-11-28] MEDS ORDERED: PATIENT'S OWN MEDICATION (NON-FORMULARY) (Valsartan/Hydrochlorothiazide [Valsartan-Hctz 32 PO SCH (10:00)
[2022-11-28] MEDS ORDERED: predniSONE 20 MG TABLET (UD) PO SCH (10:00)
[2022-11-28] MEDS ORDERED: ASPIRIN 81 MG CHEWABLE TABLETS PO SCH (10:00)
[2022-11-28] MEDS ORDERED: ENOXAPARIN NA (PORCINE) 40 MG/0.4 ML DISP.SYRIN SQ SCH (10:00)
[2022-11-28] MEDS ORDERED: HYDROCHLOROTHIAZIDE 25 MG TABLET (FP) PO SCH (10:00)
[2022-11-28] MEDS ORDERED: VALSARTAN 160 MG TABLET PO SCH (10:00)
[2022-11-28 10:24] VITALS: PULSE 85; RESP 18
[2022-11-28] MEDS ORDERED: FLU VACC QS2022-23(6MOS UP)/PF 60 MCG/0.5 ML SYRINGE IM ONE (11:00)
[2022-11-28 14:58] VITALS: BP 150/93; TEMP 98.9
== END 2022-11-28 17:20 | disposition home or self-care (01) ==
LOC: JER 10:35 → JERBED 18:54 → UNDOADMOB 18:54 → OBSVTOIN 20:15 → INTOOBSV 20:15 → JERBED 22:51 → J4S 22:51 → JERBED 11-28 11:35
PROVIDERS: ADMIT Internal Medicine; ATTEND Internal Medicine
PROC: 3E0333Z Introduction of Anti-inflammatory into Peripheral Vein, Percutaneous Approach (ICD-10-PCS; principal; 2022-11-28)
PROC: 3E0337Z Introduction of Electrolytic and Water Balance Substance into Peripheral Vein, Percutaneous Approach (ICD-10-PCS; 2022-11-28)
PROC: 3E013VG Introduction of Insulin into Subcutaneous Tissue, Percutaneous Approach (ICD-10-PCS; 2022-11-28)
PROC: 3E0F7SF Introduction of Other Gas into Respiratory Tract, Via Natural or Artificial Opening (ICD-10-PCS; 2022-11-28)
DX: R07.89 Other chest pain (principal); R05.9 Cough, unspecified; M54.9 Dorsalgia, unspecified; E11.65 Type 2 diabetes mellitus with hyperglycemia; I10 Essential (primary) hypertension; J45.909 Unspecified asthma, uncomplicated; E78.5 Hyperlipidemia, unspecified; I25.10 Atherosclerotic heart disease of native coronary artery without angina pectoris; Z98.61 Coronary angioplasty status; Z79.82 Long term (current) use of aspirin; Z79.4 Long term (current) use of insulin; J40 Bronchitis, not specified as acute or chronic; R06.02 Shortness of breath; Y26.XXXA Exposure to smoke, fire and flames, undetermined intent, initial encounter
CPT/HCPCS: 0241U-QW; 36415; 71045-TC-FY; 71275-TC; 80053; 82962; 83036; 83735; 83880; 84244; 84484; 84703; 85025; 85027; 85379; 85610; 85730; 93005; 93010; 94640; 99285-25; G0378; Q9967

== ENCOUNTER 2024-04-13 12:34 | Observation (INO) | payer BC ==
[2024-04-13 12:59] VITALS: BMI 27.8
[2024-04-13] MEDS ORDERED: ASPIRIN 81 MG CHEWABLE TABLETS ONE (15:15)
[2024-04-13] MEDS: ASPIRIN 81 MG CHEWABLE TABLETS PO ONE (15:20)
[2024-04-13 15:34] LABS: BASO % 1.1 % (0-2.0); EOS % 4.5 % (0-4.5); HEMATOCRIT 42.5 % (32.4-45.2); HEMOGLOBIN 14.1 GM/dL (10.7-15.3); LYMPH % 17.7 % (8-40); MCH 27.4 pg (25.7-33.7); MCHC 33.2 g/dl (32.0-36.0); MEAN CELL VOLUME 82.5 fl (80-96); MEAN PLT VOLUME 8.9 fl (7.5-11.1); MONO % 6.5 % (3.8-10.2); NEUT % 70.2 % (42.8-82.8); PLATELET COUNT 481 10^3/uL (134-434); RBC 5.15 M/mm3 (3.60-5.2); RDW 15.3 % (11.6-15.6); WHITE BLOOD COUNT 9.6 K/mm3 (4.0-10.0)
[2024-04-13 15:47] LABS: CHLORIDE 100 mmol/L (98-107); SODIUM 127 mmol/L (136-145)
[2024-04-13 15:48] LABS: BLOOD UREA NITROGEN 12.6 mg/dL (7-18); CALCIUM 8.8 mg/dL (8.5-10.1); POTASSIUM 8.4 mmol/L (3.5-5.1)
[2024-04-13 15:49] LABS: ALBUMIN 3.5 g/dl (3.4-5.0); ANION GAP 2 mmol/L (4-13); CO2 24 mmol/L (21-32); GLUCOSE,RANDOM 342 mg/dL (74-106)
[2024-04-13 15:52] LABS: CREATININE 0.8 mg/dL (0.55-1.3); SGOT/AST 84 U/L (15-37)
[2024-04-13 15:53] LABS: BILIRUBIN,TOTAL 0.3 mg/dL (0.2-1); SGPT/ALT 31 U/L (13-61); TOT PROT 7.6 g/dl (6.4-8.2)
[2024-04-13 15:56] LABS: ALK PHOS 114 U/L (45-117)
[2024-04-13 17:37] LABS: POTASSIUM 4.3 mmol/L (3.5-5.1)
[2024-04-13 17:39] LABS: BLOOD UREA NITROGEN 11.8 mg/dL (7-18)
[2024-04-13] MEDS ORDERED: amLODIPine BESYLATE 5 MG TABLET (FP) ONE (17:39)
[2024-04-13] MEDS ORDERED: HYDROCHLOROTHIAZIDE 25 MG TABLET (FP) ONE (17:39)
[2024-04-13] MEDS ORDERED: VALSARTAN 80 MG TABLET ONE (17:40)
[2024-04-13 17:42] LABS: CREATININE 0.7 mg/dL (0.55-1.3)
[2024-04-13] MEDS: HYDROCHLOROTHIAZIDE 25 MG TABLET (FP) PO SCH (18:00)
[2024-04-13] MEDS: amLODIPine BESYLATE 5 MG TABLET (FP) PO SCH (18:00)
[2024-04-13] MEDS: VALSARTAN 160 MG TABLET PO SCH (18:00)
[2024-04-13 18:14] LABS: CHOLESTEROL 259 mg/dL (50-200)
[2024-04-13 18:15] LABS: LDL CHOLESTEROL (ONLY SJRH) 138 mg/dL (5-100)
[2024-04-13 18:17] LABS: HDL CHOLESTEROL 80 mg/dL (40-60)
[2024-04-13] MEDS: LABETALOL HCL 100 MG TABLET (FP) PO SCH (19:05)
[2024-04-13] MEDS ORDERED: ACETAMINOPHEN INJECTION 100 ML ONE (19:05)
[2024-04-13] MEDS: ACETAMINOPHEN 1000 MG/100 ML BAG IVPB ONE (19:10)
[2024-04-13] MEDS ORDERED: INSULIN ASPART SLIDING SCALE (NOVOLOG) 1 VIAL SQ ONE (23:08)
[2024-04-13] MEDS ORDERED: INSULIN (LEVEMIR) 100 UNITS/ML UNITS SQ ONE ×2 (23:09→23:49)
[2024-04-13] MEDS: INSULIN ASPART SLIDING SCALE (NOVOLOG) 1 VIAL SQ SCH (23:23)
[2024-04-13] MEDS: PATIENT'S OWN MEDICATION (NON-FORMULARY) (Valsartan/Hydrochlorothiazide [Valsartan-Hctz 32 PO SCH (23:38)
[2024-04-13] MEDS: INSULIN (LEVEMIR) 100 UNITS/ML UNITS SQ SCH (23:54)
[2024-04-14 09:01] LABS: BASO % 1.3 % (0-2.0); EOS % 5.1 % (0-4.5); HEMATOCRIT 38.5 % (32.4-45.2); HEMOGLOBIN 12.7 GM/dL (10.7-15.3); LYMPH % 20.5 % (8-40); MCH 27.5 pg (25.7-33.7); MEAN CELL VOLUME 83.3 fl (80-96); MEAN PLT VOLUME 8.9 fl (7.5-11.1); MONO % 5.7 % (3.8-10.2); NEUT % 67.4 % (42.8-82.8); PLATELET COUNT 463 10^3/uL (134-434); RBC 4.62 M/mm3 (3.60-5.2); RDW 15.2 % (11.6-15.6); WHITE BLOOD COUNT 7.7 K/mm3 (4.0-10.0)
[2024-04-14 09:19] LABS: POTASSIUM 3.6 mmol/L (3.5-5.1)
[2024-04-14 09:28] LABS: CALCIUM 9.2 mg/dL (8.5-10.1)
[2024-04-14 09:29] LABS: MAGNESIUM 1.8 mg/dL (1.8-2.4)
[2024-04-14 09:30] LABS: ALBUMIN 3.3 g/dl (3.4-5.0); BILIRUBIN,TOTAL 0.3 mg/dL (0.2-1); TOT PROT 6.1 g/dl (6.4-8.2)
[2024-04-14 09:31] LABS: BLOOD UREA NITROGEN 17.1 mg/dL (7-18)
[2024-04-14 09:34] LABS: CREATININE 0.8 mg/dL (0.55-1.3); PHOSPHOROUS 4.2 mg/dL (2.5-4.9)
[2024-04-14] MEDS: ASPIRIN 81 MG CHEWABLE TABLETS PO SCH (10:39)
[2024-04-14] MEDS: ENOXAPARIN NA (PORCINE) 40 MG/0.4 ML DISP.SYRIN SQ SCH (10:39)
[2024-04-14] MEDS: FLU VACCINE (FLULAVAL) PF 45 MCG/0.5 ML SYRINGE 2024-2025 IM ONE (10:41)
[2024-04-14] MEDS: glipiZIDE 5 MG TABLET (FP) PO SCH (17:25)
[2024-04-14] MEDS: metFORMIN HCL 500 MG TABLET (FP) PO SCH (17:25)
[2024-04-14] MEDS: GABAPENTIN 100 MG CAPSULE PO SCH (17:25)
[2024-04-14 20:47] VITALS: RESP 16
[2024-04-14] MEDS: ATORVASTATIN CA 40 MG TABLET (FP) PO SCH (21:36)
[2024-04-15] MEDS: EMPAGLIFLOZIN (JARDIANCE) 10 MG TABLET PO SCH (06:35)
[2024-04-15] MEDS ORDERED: INSULIN ASPART SLIDING SCALE (NOVOLOG) 1 VIAL SQ ONE (06:55)
[2024-04-15 08:28] LABS: HEMATOCRIT 38.3 % (32.4-45.2); HEMOGLOBIN 12.9 GM/dL (10.7-15.3); MCH 27.6 pg (25.7-33.7); MCHC 33.6 g/dl (32.0-36.0); MEAN CELL VOLUME 82.2 fl (80-96); MEAN PLT VOLUME 8.6 fl (7.5-11.1); PLATELET COUNT 474 10^3/uL (134-434); RBC 4.67 M/mm3 (3.60-5.2); RDW 15.4 % (11.6-15.6); WHITE BLOOD COUNT 8.1 K/mm3 (4.0-10.0)
[2024-04-15 08:50] LABS: POTASSIUM 3.7 mmol/L (3.5-5.1)
[2024-04-15 08:55] LABS: BLOOD UREA NITROGEN 18.4 mg/dL (7-18); CALCIUM 9.1 mg/dL (8.5-10.1); MAGNESIUM 1.4 mg/dL (1.8-2.4)
[2024-04-15 08:58] LABS: CREATININE 0.9 mg/dL (0.55-1.3); PHOSPHOROUS 4.8 mg/dL (2.5-4.9)
[2024-04-15] MEDS: amLODIPine BESYLATE 10 MG TABLET (FP) PO SCH (09:48)
[2024-04-15] MEDS ORDERED: amLODIPine BESYLATE 10 MG TABLET (FP) PO SCH (10:00)
[2024-04-15 14:29] VITALS: BP 144/77; PULSE 83; TEMP 97.9
== END 2024-04-15 14:32 | disposition home or self-care (01) ==
LOC: JER 12:34 → JERBED 17:57 → J4S 23:59
PROVIDERS: ADMIT Internal Medicine; ATTEND Internal Medicine
PROC: 3E033NZ Introduction of Analgesics, Hypnotics, Sedatives into Peripheral Vein, Percutaneous Approach (ICD-10-PCS; principal; 2024-04-13)
PROC: 3E023GC Introduction of Other Therapeutic Substance into Muscle, Percutaneous Approach (ICD-10-PCS; 2024-04-13)
PROC: 3E013VG Introduction of Insulin into Subcutaneous Tissue, Percutaneous Approach (ICD-10-PCS; 2024-04-13)
DX: R00.2 Palpitations (principal); I16.0 Hypertensive urgency; E11.40 Type 2 diabetes mellitus with diabetic neuropathy, unspecified; E11.65 Type 2 diabetes mellitus with hyperglycemia; I25.10 Atherosclerotic heart disease of native coronary artery without angina pectoris; G62.9 Polyneuropathy, unspecified; F41.9 Anxiety disorder, unspecified; F51.9 Sleep disorder not due to a substance or known physiological condition, unspecified; E78.5 Hyperlipidemia, unspecified; J45.909 Unspecified asthma, uncomplicated; R20.8 Other disturbances of skin sensation; M79.605 Pain in left leg; M79.604 Pain in right leg; Z79.4 Long term (current) use of insulin; Z23 Encounter for immunization
CPT/HCPCS: 36415; 71046-TC-FY; 80048; 80053; 80061; 82962; 83036; 83735; 84100; 84439; 84443; 84484; 85025; 85027; 90656; 93005; 93010; 93306-TC; 96372; 96374; 99285-25; G0378; J0131